=== PATIENT | male | born 1985 | race Two or more races ===

== ENCOUNTER 2018-01-18 17:38 | Emergency (ER) | payer BC, OTHER ==
--- NOTE | 2018-01-18 19:27 | UC ---
Abdominal Pain Male HPI - HPI Summary HPI Summary: This is erick Baltazar documenting for attending Rocky Vanegas MD. This patient is a 32 year old M presenting to [facility] with a chief complaint of intermittent cramping epigastric pain since 2 days ago. The patient rates the pain 7/10 in severity. Symptoms aggravated by nothing. Symptoms alleviated by nothing. Patient reports yellowish watery diarrhea x6-7 per day, feeling bloated , diaphoresis, fatigue, and body aches. Patient reports a fever since 3 days ago with a peak temperature of 105 degrees 2 days ago. Patient denies nausea, vomiting, change in diet, eating anything questionable or back pain. The patient has been taking ibuprofen and Tylenol. Patient denies any medical problems. Patient denies exposure to anyone exhibiting similar symptoms. - History of Current Complaint Chief Complaint: UCAbdominalPain Stated Complaint: STOMACH CRAMPS,FEVER Time Seen by Provider: 01/18/18 18:52 Hx Obtained From: Patient Onset/Duration: Gradual Onset, Lasting Days - 3 days, Still Present Timing: Constant Severity Initially: Moderate Severity Currently: Moderate Pain Intensity: 7 Pain Scale Used: 0-10 Numeric Location: Epigastric Radiates: No Character: Cramping Aggravating Factor(s): Nothing Alleviating Factor(s): Nothing Associated Signs And Symptoms: Positive: Diaphoresis, Fever, Decreased Appetite , Diarrhea, Other - body aches, fatigue. Negative: Back Pain, Blood in Stool, Nausea, Vomiting - Allergies/Home Medications Allergies/Adverse Reactions: Allergies Allergy/AdvReac Type Severity Reaction Status Date / Time No Known Allergies Allergy Verified 01/18/18 18:03 Home Medications: Home Medications Acetaminophen [Tylenol] 01/18/18 [History] PMH/Surg Hx/FS Hx/Imm Hx Previously Healthy: Yes - Surgical History Surgical History: None - Family History Known Family History: Positive: None - patient denies FHx - Social History Alcohol Use: None Substance Use Type: None Smoking Status (MU): Never Smoked Tobacco Review of Systems Constitutional: Fever, Fatigue Skin: Other - diaphoresis Cardiovascular: Negative - negative chest pain Gastrointestinal: Negative - negative vomiting, negative nausea, Abdominal Pain - epigastric pain, Diarrhea Musculoskeletal: Other: - body aches All Other Systems Reviewed And Are Negative: Yes Physical Exam - Summary Physical Exam Summary: Appearance: Well-appearing, Well-nourished Skin: Warm Eyes: Normal ENT: Normal Neck: Supple, nontender Respiratory: Clear to auscultation Cardiovascular: Regular rate, regular rhythm. Normal S1, S2. Abdomen: mildly distended, mild to moderate tenderness in RUQ and LUQ, hypoactive bowel sounds Musculoskeletal: Normal, Strength/ROM Intact Neurological: Normal, A&Ox3 Psychiatric: Normal General: No acute distress Triage Information Reviewed: Yes Vital Signs: Initial Vital Signs Temp 98.5 F 01/18/18 17:56 Pulse 70 01/18/18 17:56 Resp 16 01/18/18 17:56 BP 116/77 01/18/18 17:56 Pulse Ox 99 01/18/18 17:56 Vital Signs Reviewed: Yes Abd Pain Male Course/Dx - Differential Dx/Clinical Impression Provider Diagnoses: diarrhea, viral gastroenteritis Discharge - Sign-Out/Discharge Documenting (check all that apply): Patient Departure - Discharge Plan Condition: Stable Disposition: HOME Prescriptions: Loperamide CAP* [Imodium CAP*] 2 mg PO SEE INSTRUCTIONS PRN 2 Days #10 cap PRN Reason: Diarrhea Patient Education Materials: Gastroenteritis (ED) Referrals: [facility] [place] [facility] [Outside] Additional Instructions: go to ER if pain worsens - Billing Disposition and Condition Condition: STABLE Disposition: Home
[2018-01-18 19:56] VITALS: BP 127/64
== END 2018-01-18 19:56 | disposition home or self-care (01) ==
LOC: UCEAST 17:38
DX: A08.4 Viral intestinal infection, unspecified (principal)
CPT/HCPCS: 81003; 99202; G0463

== ENCOUNTER 2018-12-25 10:52 | Emergency (ER) | payer OTHER ==
--- OUTSIDE RECORDS SUMMARY | 2018-12-25 11:12 | XMS REPORT | Continuity of Care Document ---
:1985 External Reference #:[id number] Author Name Manjit Chong PA Address [address] [place] [address] Care Team Providers Name Role Phone Abdi Morgan MD Care Team Information Criminal Analyst Unavailable Payers Date Identification Numbers Payment Provider Subscriber Effective: 2017 Policy Number: [id number] [facility] PayID: [id number] [address] [place] [address] Effective: 2012 Policy Number: [id number] [facility] Ppo Susan Dickerson [facility] Expires: 2016 PayID: [id number] [address] [address] [place] [address] Problems Description No Active Problems Family History Date Family Member(s) Observation Comments Father Good Health Father Alcoholism Mother Diabetes, Adult First Sister Kidney Stones Maternal Grandfather Arthritis Maternal Grandfather Diabetes, Adult Maternal Grandmother Hernia Sergery AT 80 Social History Type Date Description Comments Sex Unknown Tobacco Use Start: Unknown Never Smoked Cigarettes Tobacco Use Start: Unknown Patient has never smoked Smoking Status Reviewed: 12/21/18 Patient has never smoked Allergies, Adverse Reactions, Alerts Description No Known Drug Allergies Medications Active Medications SIG Qnty Indications Ordering Date Provider Genteal Tears Liquid 1 gtt q 1hr prn L 30ml H11.001 Natacha, 12/21/2018 Drops Moderate and R eyes Polina Dee MD 0.1-0.2-0.3% Solution Meloxicam 1 by mouth twice 60tabs M25.512 Natacha, 12/21/2018 7.5mg Tablets a day for Polina Dee MD 2-3weeks then as needed Cyclobenzaprine HCL 1/2 to 1 tab by 45tabs M62.830 Natacha 05/29/2018 10mg mouth nightly Polina eDe MD Tablets needed muscle spasm Naproxen 1 by mouth twice 60tabs M62.830 [facility], 05/29/2018 500mg Tablets a day for ~2weeks Polina Dee MD and then reduce to as needed Proair HFA 2 puffs every 6 8.500gm J06.9 [facility], 11/13/2017 108(90Base) hours as needed Polina Dee MD mcg/Act Aerosol wheezing/sob [may substitute covered med] History Medications Guaifenesin ER 1 by mouth twice a 30tabs J06.9 Natacha, 11/13/2017 - 1200mg day as needed Polina Dee MD 11/23/2017 Tablets ER 12HR congestion No Active Unknown 08/05/2016 - Medications 08/05/2016 Ventolin HFA 2 puffs every 4 16gm R05 [facility], 08/05/2016 - hours as needed for Polina Dee MD 11/13/2017 108(90Base) mcg/Act shortness of breath Aerosol No Work Today for medical reason, J02.0 Guera Han 07/07/2015 - has strep infection C, 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 and is contagious till on antibiotics for 24 hrs Amoxicillin 1 by mouth twice a 20tabs J02.0 Guera Han 07/07/2015 - 875mg day Joe, 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 Tablets No Active Unknown 06/19/2015 - Medications 07/07/2015 Prednisone 4 tab together qAM 12tabs J02.9 Caridad Archuleta, 06/08/2015 - 10mg X 3 days 06/19/2015 Tablets No Active Unknown 05/01/2015 - Medications 05/01/2015 Guaifenesin-Codeine 10 cubic 160cc J06.9 Caridad Archuleta, 05/01/2015 - centimeters at MD 06/08/2015 100-10mg/5ML Syrup bedtime as needed may also try day time three times a day use but caution for drowsiness Tessalon Perles 1-2 by mouth three 40caps J06.9 Caridad Archuleta, 2014 - 100mg times a day as 06/08/2015 Capsules needed cough - day time use for cough No Work Today For May return to full Guera Han 11/18/2014 - Medical Reasons duty next scheduled VISHAL Diaz [employer] 05/01/2015 day. Meclizine HCL take 1- 2 tabs at 30tabs 386.11 Guera Han 11/18/2014 - 25mg night if needed for VISHAL Diaz MS 05/01/2015 Tablets vertigo till sx are gone. Levofloxacin 1 by mouth every 7tabs 482.9 Caridad Archuleta, 11/10/2014 - 500mg day x 7 days - pls 05/01/2015 Tablets offer pt rebais coupon Work Note pls excuse pt from Caridad Archuleta, 11/10/2014 - work from 11/11/14 05/01/2015 may return to work on 11/14/14 no restrictions. Augmentin 1 tab by mouth 20tabs 780.60 Caridad Archuleta, 11/08/2014 - 875-125mg twice a day x 10 MD 11/10/2014 Tablets days Out Of Work off work November 07, 780.60 Caridad Archuleta, 11/08/2014 - D/T 2014 05/01/2015 Illness Azithromycin 2 tabs (500mg) on 6tabs 465.9 Caridad Archuleta, 11/18/2013 - 250mg day 1, then 1 tab 11/13/2014 Tablets (250mg) po on day 2-5. may watch and wait 72hr first prior starting Proair HFA 2 inhalations by 1units 465.9 Guera Han 04/07/2012 - mouth tid as needed VISHAL Diaz [employer] 11/18/2013 108(90Base) mcg/ac for wheezing Aerosol Out Of Work 04/06-04/07. october 682.8 Guera Han 04/07/2012 - D/T return to full duty VISHAL Diaz [employer] 04/17/2012 Illness next scheduled day. Amoxicillin/Potassiu bid 20tabs 682.8 Guera Han 04/01/2012 - m Clavulanate VISHAL Diaz MSP 11/19/2013 875-125mg Tablets No Work 04/02/12 724.3 Guera Han 04/01/2012 - D/T Illness C, RN [facility] 04/11/2012 Azithromycin 2 tabs day one and 1Pack [place], 11/11/2011 - 250mg 1 tab daily till Polina Dee MD 11/18/2013 Tablets gone Quantiferon Blood fax results to Guera Han 10/16/2011 - Test [phone] C, RN MS [facility] 10/26/2011 Amoxicillin 1 po bid 20tabs 034.0 Guera Han 06/04/2011 - 875mg C, RN MS [facility] 10/01/2011 Tablets Azithromycin 2 tabs day one and 6tabs 465.9 Guera Han 06/28/2010 - 250mg 1 tab daily till C, RN MS [facility] 07/08/2010 Tablets gone Azithromycin 2 tabs day one and 6tabs 465.9 Guera Han 05/03/2009 - 250mg 1 tab daily till C, RN MS [facility] 06/28/2010 Tablets gone Medications Administered in Office Medication SIG Qnty Indications Ordering Provider Date PPD Nurses Schedule Mily 09/25/2011 Injection Immunizations CPT Code Status Date Vaccine Lot # [id number] Given 07/29/2018 Afluria Or Fluvirin Flu Vac Intramuscular [id number] Given 11/08/2014 Tetanus And Diptheria Toxoids For Adult [id number] Use-preservative free Vital Signs Date Vital Result Comment 12/21/2018 10:02am Body Temperature 97.0 F Weight 177.00 lb Heart Rate 69 /min BP Systolic 123 mmHg BP Diastolic 79 mmHg Height 62 inches 5'2" BMI (Body Mass Index) 32.4 kg/m2 05/29/2018 10:31am Weight 172.00 lb Heart Rate 72 /min BP Systolic 113 mmHg BP Diastolic 70 mmHg Height 62 inches 5'2" BMI (Body Mass Index) 31.5 kg/m2 11/13/2017 1:41pm Body Temperature 98.6 F Weight 170.00 lb Heart Rate 85 /min BP Systolic 119 mmHg BP Diastolic 69 mmHg Height 62 inches 5'2" BMI (Body Mass Index) 31.1 kg/m2 08/13/2017 2:47pm Body Temperature 97.8 F Weight 167.12 lb Heart Rate 64 /min BP Systolic 124 mmHg BP Diastolic 72 mmHg Height 62 inches 5'2" BMI (Body Mass Index) 30.6 kg/m2 08/05/2016 10:12am Body Temperature 96.7 F Weight 176.12 lb Heart Rate 59 /min BP Systolic 114 mmHg BP Diastolic 72 mmHg Height 62 inches 5'2" BMI (Body Mass Index) 32.2 kg/m2 07/07/2015 8:27am Body Temperature 96.6 F Weight 175.00 lb Heart Rate 61 /min BP Systolic 119 mmHg BP Diastolic 81 mmHg Height 62 inches 5'2" BMI (Body Mass Index) 32.0 kg/m2 06/19/2015 1:08pm Weight 174.25 lb Heart Rate 88 /min BP Systolic 127 mmHg BP Diastolic 71 mmHg Height 62 inches 5'2" BMI (Body Mass Index) 31.9 kg/m2 Urine Dipstick - Blood NEGATIVE Urine Dipstick - Protein NEGATIVE Urine Dipstick - Glucose NEGATIVE Urine Dipstick - Leukocytes NEGATIVE 06/08/2015 10:22am Body Temperature 98.3 F Weight 176.50 lb Heart Rate 91 /min BP Systolic 124 mmHg BP Diastolic 69 mmHg Height 62 inches 5'2" BMI (Body Mass Index) 32.3 kg/m2 05/01/2015 1:25pm Body Temperature 98.0 F Weight 176.00 lb Heart Rate 74 /min BP Systolic 123 mmHg BP Diastolic 71 mmHg Height 62 inches 5'2" BMI (Body Mass Index) 32.2 kg/m2 11/18/2014 1:20pm Body Temperature 97.9 F Weight 167.12 lb Heart Rate 68 /min BP Systolic 98 mmHg BP Diastolic 64 mmHg BP Systolic Lying Down 105 mmHg P55 BP Diastolic Lying Down 66 mmHg P55 BP Systolic Sitting 108 mmHg P67 BP Diastolic Sitting 69 mmHg P67 BP Systolic Standing 107 mmHg P70 BP Diastolic Standing 68 mmHg P70 Height 62 inches 5'2" O2 Saturation Level with Exercise 98 % BMI (Body Mass Index) 30.6 kg/m2 11/10/2014 10:03am Body Temperature 98.7 F Weight 168.00 lb Heart Rate 80 /min BP Systolic 124 mmHg BP Diastolic 76 mmHg Height 62 inches 5'2" BMI (Body Mass Index) 30.7 kg/m2 11/08/2014 1:47pm Body Temperature 103.6 F Weight 169.00 lb Heart Rate 99 /min BP Systolic 127 mmHg BP Diastolic 79 mmHg Height 62 inches 5'2" BMI (Body Mass Index) 30.9 kg/m2 11/18/2013 11:08am Body Temperature 98.0 F Weight 172.50 lb Heart Rate 68 /min BP Systolic 118 mmHg BP Diastolic 77 mmHg O2 Saturation Level with Exercise 98 % 04/07/2012 10:42am Weight 170.00 lb Heart Rate 69 /min BP Systolic 114 mmHg BP Diastolic 60 mmHg 04/01/2012 10:43am Body Temperature 97.2 F Weight 168.00 lb Heart Rate 60 /min BP Systolic 119 mmHg BP Diastolic 65 mmHg 10/01/2011 12:20pm Weight 172.00 lb Heart Rate 68 /min BP Systolic 113 mmHg BP Diastolic 68 mmHg 06/04/2011 4:14pm Body Temperature 97.4 F Weight 170.00 lb Heart Rate 67 /min BP Systolic 120 mmHg BP Diastolic 73 mmHg 07/12/2010 2:25pm Body Temperature 98.5 F Weight 161.00 lb Heart Rate 57 /min BP Systolic 120 mmHg BP Diastolic 65 mmHg 06/28/2010 8:37am Body Temperature 97.2 F Weight 162.00 lb Heart Rate 54 /min BP Systolic 133 mmHg BP Diastolic 84 mmHg 04/05/2010 1:21pm Weight 160.00 lb Heart Rate 64 /min BP Systolic 119 mmHg BP Diastolic 76 mmHg 05/03/2009 3:33pm Body Temperature 98.8 F Weight 155.00 lb Heart Rate 65 /min BP Systolic 119 mmHg BP Diastolic 64 mmHg Results Test Date Facility Test Result H/L Range Note Laboratory test 12/21/2018 Done In [facility] 1 Rapid Flu NEG finding Test (In House) 1 Strep Screen (In-House) NEG Negative Comprehensive Metabolic (CMP) 06/19/2015 [facility] Sodium 137 mmol/L 134- 142 Potassium 4.1 mmol/L 3.5-5.2 Chloride 105 mmol/L 97-109 Carbon Dioxide 25 mmol/L 24-34 Glucose 84 mg/dL 70-105 BUN 19 mg/dL 6-26 Creatinine 0.9 mg/dL 0.5-1.4 Calcium 9.3 mg/dL 8.5-10.2 Total Protein 7.0 g/dL 6.0-8.0 Albumin 4.4 g/dL 3.6-4.9 Globulin 2.6 g/dL 2.0-3.5 A/G Ratio 1.7 Ratio 1.0-2.2 Total Bilirubin 0.6 mg/dL 0.1-1.3 Alkaline Phosphatase 66 U/L 24-140 Alt 27 U/L 3-42 Ast 21 U/L 8-42 Anion Gap 11 mmol/L 6-14 Armida Egfr >60 >60 1 Non Armida Egfr >60 >60 2 Laboratory test finding 06/19/2015 [facility] 4 mm/hr 0-15 CRP (C-Reactive) 0.86 mg/dL High 0.00-0.75 Lipase 15 U/L 11-82 Urine Culture Microbiology res <SEE NOTE> 3 Rout Urine W/ Micro -RL 06/19/2015 [facility] Color YELLOW Appearance CLEAR Spec Grav Urine 1.026 (1.003-1.030) PH Urine 6.5 (5.0-7.5) Leuk Esterase NEGATIVE (Neg) Nitrite Urine NEGATIVE (Neg) Protein Urine NEGATIVE (Neg) Glucose Urine NEGATIVE (Neg) Ketone Urine NEGATIVE (Neg) Urobilinogen 0.2 mg/dL (0-1.0) Bilirubin Urine NEGATIVE (Neg) Blood/HGB Urine NEGATIVE (Neg) Epithelial Cells NEGATIVE [HPF] (Neg) Hyaline Casts 1.4 [LPF] (0-5) Bacteria NEGATIVE [HPF] (Neg) Urine WBC 0.8 [HPF] (0-8) Urine RBC 0.4 [HPF] (0-3) 4 CBC With Auto Diff 06/19/2015 [facility] W[facility] 14.4 K/uL High 4.1-11.0 RBC 5.19 M/uL 4.60-6.10 Hemoglobin 14.7 gm/dL 13.5-18.0 Hematocrit 43.2 % 41.0-53.0 MCV 83.2 fL 80.0-97.0 MCH 28.4 pg 27.0-32.0 MCHC 34.1 g/dL 32.0-36.0 RDW 13.2 % 11.5-14.5 PLT Count 259 K/ul 140-400 Neutrophil 77.6 % High 35.0-75.0 Lymphocyte 15.5 % Low 16.0-52.0 Monocyte 6.0 % 2.0-10.0 Eosinophil 0.3 % 0.0-5.0 Basophil 0.6 % 0.0-4.0 Abs Neutrophils 11.2 K/uL High 2.1-8.0 Abs Lymphocytes 2.2 K/uL 0.8-5.5 Abmon 0.9 K/uL 0.1-1.0 Abs Eosinophils 0.0 K/uL 0.0-0.5 Abs Basophils 0.1 K/uL 0.0-0.3 Laboratory test 06/08/2015 Done In [facility] 1 Strep Screen NEG Negative finding (In-House) Laboratory test 05/01/2015 Done In [facility] 1 Strep Screen NEG Negative finding (In-House) CBC With Auto Diff 11/08/2014 [facility] WBC 9.4 K/uL 4.1-11.0 5 RBC 5.07 M/uL 4.60-6.10 Hemoglobin 14.5 gm/dL 13.5-18.0 Hematocrit 42.3 % 41.0-53.0 MCV 83.4 fL 80.0-97.0 MCH 28.6 pg 27.0-32.0 MCHC 34.3 g/dL 32.0-36.0 RDW 12.9 % 11.5-14.5 PLT Count 217 K/ul 140-400 Neutrophil 79.1 % High 35.0-75.0 Lymphocyte 10.4 % Low 16.0-52.0 Monocyte 10.0 % 2.0-10.0 Eosinophil 0.0 % 0.0-5.0 Basophil 0.5 % 0.0-4.0 Abs Neutrophils 7.5 K/uL 2.1-8.0 Abs Lymphocytes 1.0 K/uL 0.8-5.5 Abmon 0.9 K/uL 0.1-1.0 Abs Eosinophils 0.0 K/uL 0.0-0.5 Abs Basophils 0.0 K/uL 0.0-0.3 Laboratory test finding 11/08/2014 [facility] 36 mm/hr High 0-15 Comprehensive Metabolic (CMP) 11/08/2014 [facility] Sodium 133 mmol/L Low 134-142 Potassium 3.7 mmol/L 3.5-5.2 Chloride 99 mmol/L 97-109 Carbon Dioxide 25 mmol/L 24-34 Glucose 127 mg/dL High 70-105 BUN 12 mg/dL 6-26 Creatinine 1.0 mg/dL 0.5-1.4 Calcium 9.0 mg/dL 8.5-10.2 Total Protein 7.1 g/dL 6.0-8.0 Albumin 4.1 g/dL 3.6-4.9 Globulin 3.0 g/dL 2.0-3.5 A/G Ratio 1.4 Ratio 1.0-2.2 Total Bilirubin 1.1 mg/dL 0.1-1.3 Alkaline Phosphatase 82 U/L 24-140 Alt 68 U/L High 3-42 Ast 46 U/L High 8-42 Anion Gap 13 mmol/L 6-14 Armida Egfr >60 >60 6 Non Armida Egfr >60 >60 7 Rout Urine W/ Micro -RL 11/08/2014 [facility] Color LUCINA Appearance TURBID Spec Grav Urine 1.025 (1.003-1.030) PH Urine 5.5 (5.0-7.5) Leuk Esterase NEGATIVE (Neg) Nitrite Urine NEGATIVE (Neg) Protein Urine 1+ Abnormal (Neg) Glucose Urine NEGATIVE (Neg) Ketone Urine TRACE (Neg) Urobilinogen 1.0 mg/dL (0-1.0) Bilirubin Urine 1+ Abnormal (Neg) 8 Blood/HGB Urine NEGATIVE (Neg) Urine WBC 0-2 [HPF] (0-5) Urine RBC 0-2 [HPF] (0-2) Amorphous 2+ [HPF] 9 Laboratory 11/08/2014 [facility] [place] Urine Microbiology res 10 test finding Culture <SEE NOTE> Ebv Evaluation 07/12/2010 [facility] (Do not Use) Ebv Nuclear POSITIVE INDEX Abnormal (<0 11, (Antibody [facility] Ag Igg - [place] .90 12 Panel) [place] [address] ) [phone] Ebv Vca Igm - [place] NEGATIVE INDEX (<0.90) Ebv Early Ag, Igg - [place] NEGATIVE INDEX (<0.90) Ebv Vca Igg - [place] POSITIVE INDEX Abnormal (<0.90) 13 Basic (BMP) 07/12/2010 [facility] (Do not Use) Sodium 139 mmol/L 135- 144 14 [facility] [place] [address] [phone] Potassium 4.1 mmol/L 3.6-5.2 Chloride 106 mmol/L 97-110 Carbon Dioxide 28 mmol/L 23-32 Glucose 78 mg/dL 70-105 BUN 15 mg/dL 6-22 Creatinine 1.1 mg/dL 0.5-1.3 BUN/CR 14 Ratio Anion Gap 9 mmol/L 8-16 Calcium 9.5 mg/dL 8.6-10.2 GFR Calculation > 60 mL/min 60-175 15 GFR For > 60 mL/min 60-175 16 CBC With Auto Diff 07/12/2010 [facility] (Do not Use) WBC 6.4 K/ul 4.0- 10.9 [facility] [place] [address] [phone] RBC 4.86 M/ul 4.70-6.10 Hemoglobin 14.8 GM/dl 13.5-18.0 Hematocrit 42.4 % 42.0-52.0 MCV 87.4 FL 80.0-97.0 MCH 30.6 pg 27.0-31.0 MCHC 35.0 g/dL 32.0-36.0 RDW 13.0 % 11.5-14.5 Platelet Count 220 K/ul 140-440 Neutrophils 64.8 % 50-70 Lymphocytes 25.2 % 20-44 Monocytes 8.0 % 2-9 Eosinophil 1.3 % 0-4 Basophil 0.7 % 0-2 Absolute Neutrophils 4.1 K/ul 2.05-7.63 Absolute Lymphocytes 1.6 K/ul 0.8-4.8 Absolute Monocytes 0.5 K/ul 0.1-1.0 Absolute Eosinophils 0.1 K/ul 0.1-0.5 Absolute Basophils 0.0 K/ul 0.0-0.3 Hematology Comment (Comm2) N/A Laboratory test 07/12/2010 [facility] (Do not Use) Throat PO (SEE NOTE) 17, 18 finding [facility] [place] [address] [phone] CBC With Auto 04/11/2010 [facility] (Do not Use) WBC 5.0 K/ul 4.0-1 19 Diff [facility] 0.[address] [place] [address] [phone] RBC 5.00 M/ul 4.70-6.10 Hemoglobin 15.1 GM/dl 13.5-18.0 Hematocrit 43.5 % 42.0-52.0 MCV 87.2 FL 80.0-97.0 MCH 30.2 pg 27.0-31.0 MCHC 34.6 g/dL 32.0-36.0 RDW 13.0 % 11.5-14.5 Platelet Count 259 K/ul 140-440 Neutrophils 55.7 % 50-70 Lymphocytes 35.1 % 20-44 Monocytes 8.2 % 2-9 Eosinophil 0.5 % 0-4 Basophil 0.5 % 0-2 Absolute Neutrophils 2.8 K/ul 2.05-7.63 Absolute Lymphocytes 1.8 K/ul 0.8-4.8 Absolute Monocytes 0.4 K/ul 0.1-1.0 Absolute Eosinophils 0.0 K/ul Low 0.1-0.5 Absolute Basophils 0.0 K/ul 0.0-0.3 Hematology Comment (Comm2) N/A Lipid Panel 04/11/2010 [facility] (Do not Use) Cholesterol 141 mg/dL 50 -199 [facility] [place] [address] [phone] Triglycerides 50 mg/dL 10-150 HDL 31 mg/dL 29-71 20 Chol/HDL Ratio 4.6 Ratio 4.0-6.7 21 VLDL 10 mg/dL 2-29 LDL (Calc) 100 mg/dL 20-129 22 1 Concerning GFR Guidelines for Americans: Normal function or mild renal disease, if clinically at risk: >/=60 mL/min Moderately decreased: 30-59 Severely decreased: 15-29 Renal failure: <15 2 Concerning GFR Guidelines: Normal function or mild renal disease, if clinically at risk: >/=60 mL/min Moderately decreased: 30-59 Severely decreased: 15-29 Renal failure: <15 Glomerular Filtration Rate (GFR) is estimated based on the MDRD equation, which assumes a steady state for creatinine as recommended by the National Kidney Disease Education Program in conjunction with the National Institutes of Health and the National Kidney Foundation. Clinical conditions in which it may be necessary to measure GFR by using clearance methods include extremes of age and body size, severe malnutrition or obesity, diseases of skeletal muscle, paraplegia or quadriplegia, vegetarian diet, rapidly changing kidney function, and calculation of the dose of potentially toxic drugs that are excreted by the kidneys. 3 Microbiology results SOURCE MIDU FINAL RESULT No growth 4 Unless otherwise specified, testing performed by [facility] [address] [place] [id number] 5 This sample is drawn by: 6 Concerning GFR Guidelines for Americans: Normal function or mild renal disease, if clinically at risk: >/=60 mL/min Moderately decreased: 30-59 Severely decreased: 15-29 Renal failure: <15 7 Concerning GFR Guidelines: Normal function or mild renal disease, if clinically at risk: >/=60 mL/min Moderately decreased: 30-59 Severely decreased: 15-29 Renal failure: <15 Glomerular Filtration Rate (GFR) is estimated based on the MDRD equation, which assumes a steady state for creatinine as recommended by the National Kidney Disease Education Program in conjunction with the National Institutes of Health and the National Kidney Foundation. Clinical conditions in which it may be necessary to measure GFR by using clearance methods include extremes of age and body size, severe malnutrition or obesity, diseases of skeletal muscle, paraplegia or quadriplegia, vegetarian diet, rapidly changing kidney function, and calculation of the dose of potentially toxic drugs that are excreted by the kidneys. 8 CONFIRMATION TEST TEMPORARILY NOT AVAILABLE DUE TO A NATIONAL REAGENT BACKORDER. 9 Unless otherwise specified, testing [place] [address] 10 Microbiology results SOURCE URINE FINAL RESULT No growth 11 This sample is drawn by:KJ 12 May indicate a current or previous infection. Unless otherwise specified, testing [place] [address] 13 May indicate a current or previous infection. 14 This sample is drawn by:KJ This sample is drawn by:KJ MIGUEL 630 15 Concerning GFR GUIDELINES: Normal Function or Mild Renal Disease, if clinically at risk: >/=60mL/min Moderately decreased: 30-59 Severely decreased: 15-29 Renal Failure: <15 Glomerular Filtration Rate (GFR) is estimated based on the MDRD equation, which assumes a steady state for creatinine as recommended by the National Kidney Disease Education Program in conjunction with the National Institutes of Health and the National Kidney Foundation. Clinical conditions in which it may be necessary to measure GFR by using clearance methods include extremes of age and body size, severe malnutrition or obesity, diseases of skeletal muscle, paraplegia or quadriplegia, vegetarian diet, rapidly changing kidney function, and calculation of the dose of potentially toxic drugs that are excreted by the kidneys. 16 Concerning GFR GUIDELINES: Normal Function or Mild Renal Disease, if clinically at risk: >/=60mL/min Moderately decreased: 30-59 Severely decreased: 15-29 Renal Failure: <15 17 This sample is drawn by:KJ 18 SPECIMEN DESCRIPTION THROAT SWAB CULTURE RESULTS NORMAL YURI AFTER 1 DAY Unless otherwise specified, testing [place] [address] 19 This sample is drawn by:[facility] 20 PER NCEP ATP III GUIDELINES: RESULTS LOWER THAN 40 MG/DL ARE SUGGESTIVE OF INCREASED RISK FOR CORONARY ARTERY DISEASE. RESULTS > OR=TO 60 MG/DL ARE CONSIDERED A NEGATIVE RISK FACTOR. 21 INTERPRETATION OF CHOL-HDL RATIO CHD RISK FEMALE MALE VERY HIGH >8.3 >14.3 HIGH 5.6 - 8.3 6.7 - 14.3 AVERAGE 3.7 - 5.6 4.0 - 6.7 BELOW AVERAGE 2.5 - 3.7 2.7 - 4.0 PROTECTED <2.5 <2.7 22 PER NCEP ATP III GUIDELINES: OPTIMAL: <100 NEAR OPTIMAL: 100 - 129 BORDERLINE HIGH: 130 - 159 HIGH: 160 - 189 VERY HIGH: >189 Procedures Date Code Description Status 11/08/2014 51392 Admin Of Inj (Therapeutic Phrophylactic Or Diagnostic Subq Completed Inj Encounters Type Date Location Provider Dx Diagnosis Office Visit 05/29/2018 Manjit Loyd PA M62.830 Muscle spasm of back 10:20a Office Visit 11/13/2017 Manjit Loyd PA J06.9 Acute upper 1:40p respiratory infection, unspecified Z68.31 Body mass index (BMI) 31.0-31.9, adult Office Visit 08/13/2017 2:40p Manjit Loyd PA J06.9 Acute upper respiratory infection, unspecified Office Visit 08/05/2016 10:20a Sun Davison, R05 Cough PA Office Visit 07/07/2015 8:00a Guera García J02.0 Streptococcal C, RN [employer] pharyngitis Office Visit 06/19/2015 1:00p Caridad Barnett, R10.30 Lower abdominal pain, unspecified Office Visit 06/08/2015 10:20a Caridad Barnett J02.9 Acute pharyngitis, unspecified Office Visit 05/01/2015 1:20p Caridad Barnett J06.9 Acute upper respiratory MD infection, unspecified Office Visit 11/18/2014 1:00p Guera García 786.2 Cough C, RN [employer] 386.11 Vertigo Benign Paroxysmal Position 458.0 Hypotension Orthostatic Office Visit 11/10/2014 9:20a Caridad Barnett, 482.9 Pneumonia Due To MD Bacterial Infection Unspec Office Visit 11/08/2014 1:40p Caridad Barnett, 780.60 Fever, Unspecified V04.81 Need For Prophylactic Vaccination & Inoculation/Influenza V06.5 Tetanus Diphtheria (DT) 782.9 Skin & Integumentary Tissue Other Symptoms Office Visit 11/18/2013 10:40a Caridad Barnett MD 465.9 URI Upper Respiratory Infections Acute Unspec Sites Office Visit 04/07/2012 10:40a Guera García, 682.8 Cellulitis & Abscess RN [employer] Other Spec Sites 465.9 URI Upper Respiratory Infections Acute Unspec Sites Office Visit 04/01/2012 10:20a Guera García, 465.9 URI Upper Respiratory RN [employer] Infections Acute Unspec Sites 682.8 Cellulitis & Abscess Other Spec Sites 724.3 Sciatica Office Visit 10/01/2011 11:40a Guera García, V01.1 TB Contact W/ Exposure RN [employer] To Office Visit 06/04/2011 4:00p Guera García, 034.0 Streptococcal Sore RN [employer] Throat Office Visit 07/12/2010 2:00p Guera García, 462 Pharyngitis Acute RN [employer] 786.2 Cough Office Visit 06/28/2010 8:30a Guera García, 465.9 URI Upper Respiratory RN [employer] Infections Acute Unspec Sites Office Visit 04/05/2010 1:15p Guera García, 789.04 Pain Abdominal LEFT RN [employer] Lower Quadrant 724.2 Lumbago V17.49 Family HX Of Other Cardiovascular Diseases Office Visit 05/03/2009 3:00p Guera García, 465.9 URI Upper Respiratory RN [employer] Infections Acute Unspec Sites Plan of Treatment Future Appointment(s):01/13/2019 8:00 am - Manjit Chong PA at [id number] - Manjit Chong PAM25.512 Pain in LEFT shoulderNew Medication:Meloxicam 7.5 mg - 1 by mouth twice a day for 2-3weeks then as neededComments:?subscap inflammation. NSAIDs and rest. f/u as scheduled.Follow up:f/u [id number] Acute upper respiratory infection, unspecifiedComments:rest, fluids, treat prn with OTC s/s meds .H11.001 Unspecified pterygium of RIGHT eyeNew Medication: Genteal Tears Liquid Drops Moderate 0.1-0.2-0.3 % - 1 gtt q 1hr prn L and R eyesComments:likely benign but need ophtho exam to r/o neoplasm vs cyst vs pterygium.Referral:Jeffrey Ladd MD, AaacfuzoverscJ36.9 Obesity, [id number] Body mass index (BMI) 32.0-32.9, [id number] Acute pharyngitis , [id number] Cough
[2018-12-25 11:24] VITALS: BP 132/92
--- NOTE | 2018-12-25 12:01 | UC ---
Throat Pain/Nasal Bunny HPI - HPI Summary HPI Summary: Pt presents with c/o ST, nasal congestion X 6 days. Pt was seen by PCP on 12/21 and was tested for flu that was negative. Pt was not tested for strep throat, is requesting test today. - History of Current Complaint Chief Complaint: UCRespiratory Stated Complaint: SORE THROAT Time Seen by Provider: 12/25/18 11:27 Hx Obtained From: Patient Onset/Duration: Sudden Onset, Lasting Days, Still Present Severity: Moderate Pain Intensity: 6 Cough: Nonproductive Associated Signs & Symptoms: Positive: Dysphagia, Hoarseness, Nasal Discharge - Epiglottits Risk Factors Epiglottis Risk Factors: Negative - Allergies/Home Medications Allergies/Adverse Reactions: Allergies Allergy/AdvReac Type Severity Reaction Status Date / Time No Known Allergies Allergy Verified 12/25/18 11:18 Home Medications: Home Medications Ibuprofen TAB* [Advil TAB*] 600 mg PO Q6H PRN 12/25/18 [History Confirmed ] PMH/Surg Hx/FS Hx/Imm Hx Previously Healthy: Yes - Surgical History Surgical History: None Surgery Procedure, Year, and Place: none - Family History Known Family History: Positive: None - patient denies FHx Negative: Cardiac Disease, Hypertension - Social History Occupation: Employed Full-time Lives: With Family Alcohol Use: None Substance Use Type: None Smoking Status (MU): Never Smoked Tobacco Have You Smoked in the Last Year: No - Immunization History Vaccination Up to Date: Yes Review of Systems All Other Systems Reviewed And Are Negative: Yes Constitutional: Positive: Chills, Fatigue Skin: Positive: Negative Eyes: Positive: Negative ENT: Positive: Sore Throat, Sinus Congestion Respiratory: Positive: Cough Cardiovascular: Positive: Negative Gastrointestinal: Positive: Negative Genitourinary: Positive: Negative Motor: Positive: Negative Neurovascular: Positive: Negative Musculoskeletal: Positive: Negative Neurological: Positive: Negative Psychological: Positive: Negative Is Patient Immunocompromised?: No Physical Exam Triage Information Reviewed: Yes Appearance: Ill-Appearing Vital Signs: Initial Vital Signs Temp 97.8 F 12/25/18 11:13 Pulse 67 12/25/18 11:13 Resp 16 12/25/18 11:13 BP 132/92 12/25/18 11:13 Pulse Ox 100 12/25/18 11:13 Vital Signs Reviewed: Yes Eye Exam: Normal ENT: Positive: Nasal congestion, Other - PND Dental Exam: Normal Neck exam: Normal Respiratory Exam: Normal Respiratory: Positive: Normal breath sounds Cardiovascular Exam: Normal Musculoskeletal Exam: Normal Neurological Exam: Normal Psychological Exam: Normal Skin Exam: Normal Throat Pain/Nasal Course/Dx - Course Course Of Treatment: Negative rapid strep - Differential Dx/Diagnosis Differential Diagnosis/HQI/PQRI: Pharyngitis, URI Provider Diagnosis: Sore throat (viral), Viral syndrome Discharge - Sign-Out/Discharge Documenting (check all that apply): Patient Departure All imaging exams completed and their final reports reviewed: No Studies - Discharge Plan Condition: Stable Disposition: HOME Prescriptions: Fexofenadine/Pseudoephedrine [Jenny-D 24 Hour Tablet] 1 each PO DAILY #7 [id number] Patient Education Materials: Viral Syndrome (ED), Postnasal Drip (DC) Referrals: Guera Han [Primary Care Provider] - If Needed - Billing Disposition and Condition Condition: STABLE Disposition: Home
== END 2018-12-25 12:06 | disposition home or self-care (01) ==
LOC: UCCORT 10:52
DX: J02.9 Acute pharyngitis, unspecified (principal)
CPT/HCPCS: 87651; 99212; G0463